=== PATIENT | male | born 1950 | race Caucasian/White ===

== ENCOUNTER 2021-01-30 05:46 | Emergency (ER) | payer OTHER ==
[~2021-01-30] VITALS: Ht 177.8 cm; Wt 96.2 kg
[~2021-01-30 05:46] MED LIST: METFORMIN HCL500 MG
[2021-01-30] MEDS ORDERED: IRBESARTAN150 MG (05:57)
== END 2021-01-30 10:32 | disposition home or self-care (01) ==
LOC: ER 05:46
DX: R10.84 Generalized abdominal pain (principal)